=== PATIENT | male | born 1990 | race Caucasian/White ===

== ENCOUNTER 2019-02-18 13:00 | Observation (INO) | payer OTHER ==
[2019-02-18] VITALS (8 sets, daily range): BP systolic 102–154; BP diastolic 61–88; PULSE 59–83; TEMP 98–98.3
[~2019-02-18] VITALS: Ht 182.9 cm; Wt 130.9 kg
--- NOTE | 2019-02-18 15:15 | NUR ---
Patient alert and oriented, answers questions appropriately. See assessment. Abdomen soft, non distended. Minimal pain to RUQ with palpation. No c/o nausea or vomiting. No other c/o at this time.
--- NOTE | 2019-02-18 18:32 | NUR ---
Patient returns from endo. Assessment unchanged from initial.
[2019-02-18 19:55] LABS: BASO # 0.1 (0.0-0.2); BASO % 0.7 % (0.0-2.0); EOS # 0.1 (0.0-0.7); EOS % 1.3 % (0-4.0); GRAN # 5.9 (1.4-6.5); GRAN % 68.7 % (42.2-75.2); HEMATOCRIT 50.8 % (42.0-52.0); LYMPH # 2.1 (1.2-3.4); LYMPH % 24.5 % (20.0-51.0); MEAN CELL VOLUME 86 fl (80.0-100.0); MEAN CORPUSCULAR HEMOGLOBIN 31 pg (27.0-31.0); MEAN CORPUSCULAR HGB CONC 35 g/dl (33.0-37.0); MEAN PLATELET VOLUME 10.5 fl (7.4-10.4); MONO # 0.4 (0.1-0.6); MONO % 4.6 % (1.7-9.3); PLATELET COUNT 247 K/mm3 (130-400); RED BLOOD COUNT 5.88 M/mm3 (4.20-5.60); REDCELL DISTRIBUTION WIDTH-CV 12.4 % (11.5-14.5)
--- NOTE | 2019-02-18 20:45 | NUR ---
Pt. sitting up in chair at this time. Pt. is A&OX3, assessment complete. INT to rt. hand patent. Pt. denies pain at this time. Pt. denies further needs, call light within reach.
[2019-02-19 04:16] VITALS: BP 125/57; PULSE 57; TEMP 97.9
[2019-02-19 07:02] LABS: BASO # 0.1 (0.0-0.2); BASO % 0.6 % (0.0-2.0); EOS # 0.1 (0.0-0.7); EOS % 1.4 % (0-4.0); GRAN # 4.9 (1.4-6.5); GRAN % 60.3 % (42.2-75.2); HEMATOCRIT 47.1 % (42.0-52.0); HEMOGLOBIN 16.5 g/dl (13.5-18.0); LYMPH # 2.4 (1.2-3.4); MEAN CELL VOLUME 87 fl (80.0-100.0); MEAN CORPUSCULAR HEMOGLOBIN 30 pg (27.0-31.0); MEAN CORPUSCULAR HGB CONC 35 g/dl (33.0-37.0); MEAN PLATELET VOLUME 10.6 fl (7.4-10.4); MONO # 0.6 (0.1-0.6); MONO % 7.5 % (1.7-9.3); PLATELET COUNT 249 K/mm3 (130-400); RED BLOOD COUNT 5.44 M/mm3 (4.20-5.60); REDCELL DISTRIBUTION WIDTH-CV 12.5 % (11.5-14.5)
[2019-02-19 07:21] LABS: ALBUMIN 3.9 gm/dL (3.5-5.0); BILIRUBIN,TOTAL 1.9 mg/dL (0.0-1.0); CALCIUM 8.9 mg/dL (8.4-10.2); TOTAL PROTEIN 6.9 gm/dL (6.4-8.2)
[2019-02-19 08:22] VITALS: BP 144/90; PULSE 74; TEMP 98.6
[2019-02-19] MEDS ORDERED: TYLENOL 325MG325 MG PO (09:28)
--- NOTE | 2019-02-19 10:00 | NUR ---
Patient alert and oriented, answers questions appropriately. See assessment. Abdomen soft, obese. Bowel sounds hyperactive x4 quads. +Flatus. Appetite good. No c/o at this time.
--- NOTE | 2019-02-19 10:05 | NUR ---
SW attended clinical rounds. Patient will discharge home later today. Patient does not have a PCP but reports he plans to schedule and appointment with a doctor in [facility]. Patient reports his preferred pharmacy is [facility] in [facility]. At admission, patient was incarcerated but he was released from police custody yesterday. Due to this, patient does not have a way to get home to [facility]. Patient reports his does not have access to a vehicle and does not drive. Patient's father is going out of state for work, and patient does not have many friends. Patient reports he asked a friend but he does not get off work until late . Patient also does not get paid until Monday, so he is not able to pay for a taxi himself. RG will provide a tax voucher at time of discharge.
[2019-02-19 11:44] VITALS: BP 153/79; PULSE 84; TEMP 98.4
--- NOTE | 2019-02-19 12:06 | NUR ---
Initial visit; Patient thanked Journalism Professor for looking in on him and offering spiritual care. Patient states he will need to return later for additional health care and surgery. Journalism Professor encouraged him to let the nurses contact her if he would like prayer prior to his surgical procedures. He appeared pleased.
--- NOTE | 2019-02-19 12:38 | NUR ---
Discharge instructions reviewed with patient, verbalized understanding. Discharged ambulatory to auto/home at 1235. Taxi voucher sent with patient.
== END 2019-02-19 12:35 | disposition home or self-care (01) ==
LOC: SURG 13:00
PROVIDERS: Nurse Practitioner Family; ADMIT Internal Medicine
DX: K85.10 Biliary acute pancreatitis without necrosis or infection (principal); K80.50 Calculus of bile duct without cholangitis or cholecystitis without obstruction; F17.210 Nicotine dependence, cigarettes, uncomplicated; Z88.0 Allergy status to penicillin; Z88.1 Allergy status to other antibiotic agents
CPT/HCPCS: 99239; A4216; C1769; G0378; G0379; J0696; J2270; J2704; J3010; J7030; Q9967